=== PATIENT | male | born 2000 | race Caucasian/White ===

== ENCOUNTER 2018-06-25 14:03 | Emergency (ER) | payer OTHER ==
[~2018-06-25] VITALS: Ht 167.6 cm; Wt 87.5 kg
[2018-06-25 14:05] VITALS: TEMP 37.1; Ht 167.6 cm; Wt 87.5 kg
[2018-06-25] MEDS ORDERED: DiphenhydrAMINE HCL 50 MG/ML VIAL IV STA (14:18)
[2018-06-25] MEDS ORDERED: RANITIDINE HCL 50 MG/100 ML D5W IV STA (14:18)
[2018-06-25] MEDS ORDERED: DEXAMETHASONE **PF** INJ 10 MG/ML VIAL IV ONE (14:30)
[2018-06-25] MEDS ORDERED: PENICILLIN V POTASSIUM 250 MG TAB PO ONE (14:45)
[2018-06-25 14:50] LABS: BASO % 0.1 %; BASO ABS # 0.01 K/uL (0-0.2); EOS % 0.8 %; EOS ABS # 0.08 K/uL (0-0.5); HEMATOCRIT 45.9 % (42-52); HEMOGLOBIN 17.1 g/dL (14.0-18.0); IG# 0.01 K/uL (0.00-0.02); LYMPH ABS # 2.62 K/uL (1.2-3.4); MEAN CORPUSCULAR HEMOGLOBIN 31.7 pg (25-34); MEAN CORPUSCULAR HGB CONC 37.3 g/dl (32-36); MEAN PLATELET VOLUME 9.5 fL (7.4-10.4); MONO % 6.2 %; NEUT % 65.8 %; NEUT ABS # 6.38 K/uL (1.4-6.5); PLATELET COUNT 251 K/uL (130-400); RED CELL DISTRIBUTION WIDTH CV 12.3 % (11.5-14.5); RED CELL DISTRIBUTION WIDTH SD 37.8 fL (36.4-46.3)
[2018-06-25 14:58] LABS: PTT PATIENT 31.4 SECONDS (21.0-31.0)
[2018-06-25 15:06] LABS: CALCIUM 9.3 mg/dl (8.5-10.1); CREATININE 1.03 mg/dl (0.60-1.40); POTASSIUM 3.7 mmol/L (3.5-5.1)
[2018-06-25] MEDS ORDERED: METH4PAK PO (15:46)
[2018-06-25] MEDS ORDERED: PENI500T2 PO (15:46)
--- NOTE | 2018-06-25 15:47 | EMERGENCY ROOM VISIT NOTE ---
History First contact with patient: 14:10 Chief Complaint: RASH Stated Complaint: RASH, SORE THROAT History of Present Illness The patient is a 18 year old male who presents to the Emergency Room with complaints of a rash on his arms and legs mainly that started 3 days ago when he was mowing the yard. Yesterday the rash on his leg started turning a little purple and today got worse which is why he came to the emergency room. The patient states that is only slightly itchy. He has not taken any Benadryl for the itch. The patient also is complaining of a sore throat which started this morning when he woke up. He admits to a lot of postnasal drainage. He denies any ear pain or fever. The patient denies any chest pain or shortness of breath or cough. The patient denies any new soaps or detergents or any new medications. The patient denies any family history of him any rheumatoid diseases. Review of Systems 10 system review was performed and was negative unless stated otherwise history of present illness. Past Medical/Surgical History No significant past medical history Surgical history includes appendectomy Social History Smoking Status: Never Smoker Current/Historical Medications No Active Prescriptions or Reported Meds Physical Exam Vital Signs Date Time Temp Pulse Resp B/P (MAP) Pulse Ox O2 Delivery O2 Flow Rate FiO2 18 14:05 37.1 112 17 140/87 98 Room Air Physical Exam GENERAL: 18-year-old white male appears in no acute distress. MENTAL STATUS: Alert and oriented 3. EARS: Canals clear. TMs without fluid level noted. NOSE: Nasal mucosa with erythema and engorgement. PHARYNX: Tonsils with erythema and edema bilaterally. Tonsils are 3+. Airway is adequate. No exudate noted. Petechiae noted on the soft palate. NECK: Supple, bilateral anterior cervical lymphadenopathy noted. This is tender to palpation. No posterior nodes noted. No carotid bruits noted. LUNGS: Clear auscultation without wheezes rales or rhonchi. CARDIAC: Regular rate and rhythm without murmur. Pulses is full and equal throughout. SKIN: On both flank regions as well as on the patient's upper arms he has erythematous raised macular papular rash without any noted vesicles. The rash blanches. On both lower extremities he has patchy areas of slightly raised erythema which is confluent. There is some purplish color rash which is confluent on the medial aspect of the left upper and lower leg. When the patient elevates his legs the rash dissipates. Medical Decision & Procedures Laboratory Results 06/25/18 14:30 Red Blood Count 5.40, Mean Corpuscular Volume 85.0, Mean Corpuscular Hemoglobin 31.7, Mean Corpuscular Hemoglobin Concent 37.3, Mean Platelet Volume 9.5, Neutrophils (%) (Auto) 65.8, Lymphocytes (%) (Auto) 27.0, Monocytes (%) (Auto) 6.2, Eosinophils (%) (Auto) 0.8, Basophils (%) (Auto) 0.1, Neutrophils # (Auto) 6.38, Lymphocytes # (Auto) 2.62, Monocytes # (Auto) 0.60, Eosinophils # (Auto) 0.08, Basophils # (Auto) 0.01 06/25/18 14:30 Test 06/25/18 14:30 White Blood Count 9.70 K/uL (4.8-10.8) Red Blood Count 5.40 M/uL (4.7-6.1) Hemoglobin 17.1 g/dL (14.0-18.0) Hematocrit 45.9 % (42-52) Mean Corpuscular Volume 85.0 fL (80-100) Mean Corpuscular Hemoglobin 31.7 pg (25-34) Mean Corpuscular Hemoglobin Concent 37.3 g/dl (32-36) Platelet Count 251 K/uL (130-400) Mean Platelet Volume 9.5 fL (7.4-10.4) Neutrophils (%) (Auto) 65.8 % Lymphocytes (%) (Auto) 27.0 % Monocytes (%) (Auto) 6.2 % Eosinophils (%) (Auto) 0.8 % Basophils (%) (Auto) 0.1 % Neutrophils # (Auto) 6.38 K/uL (1.4-6.5) Lymphocytes # (Auto) 2.62 K/uL (1.2-3.4) Monocytes # (Auto) 0.60 K/uL (0.11-0.59) Eosinophils # (Auto) 0.08 K/uL (0-0.5) Basophils # (Auto) 0.01 K/uL (0-0.2) RDW Standard Deviation 37.8 fL (36.4-46.3) RDW Coefficient of Variation 12.3 % (11.5-14.5) Immature Granulocyte % (Auto) 0.1 % Immature Granulocyte # (Auto) 0.01 K/uL (0.00-0.02) Erythrocyte Sedimentation Rate 18 mm/hr (0-14) Prothrombin Time 10.8 SECONDS (9.0-12.0) Prothromb Time International Ratio 1.0 (0.9-1.1) Activated Partial Thromboplast Time 31.4 SECONDS (21.0-31.0) Partial Thromboplastin Ratio 1.2 Anion Gap 7.0 mmol/L (3-11) Est Creatinine Clear Calc Drug Dose 118.5 ml/min Estimated GFR () 120.6 Estimated GFR (Non- 104.1 BUN/Creatinine Ratio 13.1 (10-20) Calcium Level 9.3 mg/dl (8.5-10.1) C-Reactive Protein 6.08 mg/dl (0-0.29) Date/Time Source Procedure Growth Status 06/25/18 00:00 Throat Group A Streptococcus Screen - Final SPECIMEN POSITIVE FOR GROUP A BETA ST... Complete 06/25/18 00:00 Throat Group A Streptococcus Screen (ZULEMA) - Final Complete Medications Administered Medications (Trade) Dose Ordered Sig/María Elena Route Start Time Stop Time Status Last Admin Dose Admin Diphenhydramine HCl (Benadryl Inj) 50 mg NOW STAT IV 06/25/18 14:18 06/25/18 14:20 DC 06/25/18 14:34 50 MG Dexamethasone Sodium Phosphate (Dexamethasone Inj Pf) 10 mg NOW ONCE IV 06/25/18 14:30 06/25/18 14:31 DC 06/25/18 14:35 10 MG Ranitidine HCl (zANTac IV) 50 mg NOW STAT IV 06/25/18 14:18 06/25/18 14:20 DC 06/25/18 14:18 50 MG Penicillin V Potassium (Veetids Tab) 500 mg NOW ONCE PO 06/25/18 14:45 06/25/18 14:46 DC 06/25/18 14:56 500 MG ED Course The patient was evaluated. IV access was obtained. CBC and differential, coags , sed rate and CRP were ordered. Labs are reviewed. White count was normal. Coags were unremarkable. Sed rate was elevated 18 and CRP was elevated at 6.0. Rapid strep was positive. The patient was given Benadryl 50 mg IV, Zantac 50 mg IV and Decadron 10 mg IV. He was also given Pen-Vee K 500 mg p.o. while in the ER. The patient was independently evaluated by Dr. Case who agrees with treatment plan. The patient was informed of all findings and discharged home in stable condition. He was instructed to follow-up with a PCP in 2 days. He stated he did not have a PCP therefore I had the telephonic nurse case manager talk with the patient to get him set up in 2 days for a recheck. Medical Decision Differential diagnosis include strep pharyngitis, viral exanthem, allergic contact dermatitis, urticaria, vasculitis, erythema nodosum [place] Drug Monitoring Program Search Results: patient reviewed within database Medication Reconcilliation Current Medication List: was personally reviewed by me Blood Pressure Screening Patient's blood pressure: Normal blood pressure Impression Primary Impression: Strep pharyngitis Additional Impression: Allergic dermatitis Departure Information Dispostion Home / Self-Care Condition GOOD Prescriptions Penicillin V Potassium (VEETIDS) 500 Mg Tab 500 MG PO QID for 10 Days, #40 TAB Prov: Trupti Cesar PA-C 06/25/18 Methylprednisolone (MEDROL DOSEPAK) 4 Mg Joaquin 0 PO DAILY, #1 PKT Prov: Trupti Cesar PA-C 06/25/18 Referrals No Doctor, Assigned (PCP) Forms HOME CARE DOCUMENTATION FORM, IMPORTANT VISIT INFORMATION, WORK / SCHOOL INSTRUCTIONS Patient Instructions My [facility], Sore Throat - [facility] Additional Instructions Follow sore throat handout instructions. Tylenol and/or ibuprofen as needed for pain. Take Benadryl 25 mg every 6 hours until rash resolves. Take Medrol Dosepak as prescribed. Take penicillin as prescribed. Follow-up with family doctor in 2 days for recheck. If symptoms worsen in the interim, return to ER. Problem Qualifiers
[2018-06-25 16:03] VITALS: BP 114/69; PULSE 71; O2SAT 100
== END 2018-06-25 16:03 | disposition home or self-care (01) ==
LOC: C.EDB 14:05 → C.EDD 16:03
DX: J02.0 Streptococcal pharyngitis (principal); L23.9 Allergic contact dermatitis, unspecified cause